=== PATIENT | female | born 1960 | race American Indian/Alaskan Native ===

== ENCOUNTER 2017-08-22 06:29 | Emergency (ER) | payer MEDICARE ==
[2017-08-22 06:42] VITALS: BP 118/47
[2017-08-22] MEDS ORDERED: BSS 1 DROPS, TETRACAINE 0.5% 1 DROPS, FUL-GLO 1 MG TP ONE (09:05)
[2017-08-22] MEDS ORDERED: TETRACAINE 0.5% ONE (09:09)
[2017-08-22] MEDS ORDERED: FUL-GLO OP ONE (09:09)
[2017-08-22] MEDS ORDERED: BSS ONE (09:09)
--- NOTE | 2017-08-22 09:11 | Emergency Department Report ---
ED Eye Problem HPI - General Chief complaint: Eye Problems Stated complaint: EYE PAIN Time Seen by Provider: 08/22/17 08:46 Source: patient Mode of arrival: Ambulatory Limitations: No Limitations - History of Present Illness Initial comments: Patient is a 57-year-old female who presents to ED complaining of lefteye pain and redness 2 days. Patient states she was outside running errands yesterday when she felt like something got in her eye or under contacts. Patient states she rubbed her left eye a few times try to get it out. The patient states that when she got home she took the contacts off and noticed that her eyes are red. She also admits left eye pain and sensitivity to light. Patient states right eye vision loss in 2000 from a retinal detachment sustained from an injury. She denies vision loss of the left eye. MD chief complaint: eye pain, eye redness - Related Data Previous Rx's Medication Instructions Recorded Last Taken Type Ketorolac Tromethamin 0.4%(Nf) 1 drop OP BID #5 ml 08/22/17 Unknown Rx [Acular Ls 0.4% Ophth Brianne] Ofloxacin [Ocuflox 0.3%] 1 - 2 drop OP Q6HR #5 ml 08/22/17 Unknown Rx Allergies Allergy/AdvReac Type Severity Reaction Status Date / Time Penicillins Allergy Rash Verified 08/22/17 07:21 ED Review of Systems ROS: Stated complaint: EYE PAIN Other details as noted in HPI Constitutional: denies: chills, fever Eyes: eye pain. denies: eye discharge, vision change ENT: denies: ear pain, throat pain Respiratory: denies: cough, shortness of breath, wheezing Cardiovascular: denies: chest pain, palpitations Endocrine: no symptoms reported Gastrointestinal: denies: abdominal pain, nausea, diarrhea Genitourinary: denies: urgency, dysuria, discharge Musculoskeletal: denies: back pain, joint swelling, arthralgia Skin: denies: rash, lesions Neurological: denies: headache, weakness, paresthesias Psychiatric: denies: anxiety, depression Hematological/Lymphatic: denies: easy bleeding, easy bruising ED Past Medical Hx - Past Medical History Previous Medical History?: No - Surgical History Past Surgical History?: Yes Additional Surgical History: Partial Hysterectomy 1998. - Social History Smoking Status: Never Smoker Substance Use Type: None - Medications Home Medications: Home Medications Medication Instructions Recorded Confirmed Last Taken Type Ketorolac Tromethamin 0.4%(Nf) 1 drop OP BID #5 ml 08/22/17 Unknown Rx [Acular Ls 0.4% Ophth Brianne] Ofloxacin [Ocuflox 0.3%] 1 - 2 drop OP Q6HR #5 ml 08/22/17 Unknown Rx ED Physical Exam - General Limitations: No Limitations General appearance: alert, in no apparent distress - Head Head exam: Present: atraumatic, normocephalic - Eye Eye exam: Present: normal appearance, PERRL, EOMI, conjunctival injection, periorbital tenderness Pupils: Present: normal accommodation - ENT ENT exam: Present: mucous membranes moist - Neck Neck exam: Present: normal inspection - Respiratory Respiratory exam: Present: normal lung sounds bilaterally. Absent: respiratory distress, wheezes, rales - Cardiovascular Cardiovascular Exam: Present: regular rate, normal rhythm. Absent: systolic murmur, diastolic murmur, rubs, gallop - GI/Abdominal GI/Abdominal exam: Present: soft, normal bowel sounds - Extremities Exam Extremities exam: Present: normal inspection - Back Exam Back exam: Present: normal inspection - Neurological Exam Neurological exam: Present: alert, oriented X3. Absent: CN II-XII intact - Psychiatric Psychiatric exam: Present: normal affect, normal mood - Skin Skin exam: Present: warm, dry, intact, normal color. Absent: rash ED Course Vital Signs 08/22/17 08/22/17 08/22/17 06:33 06:36 07:21 Temperature 98.0 F 98.0 F 98 F Pulse Rate 51 L 51 L Respiratory 10 L 10 L Rate Blood Pressure 118/47 118/47 O2 Sat by Pulse 97 97 Oximetry ED Medical Decision Making - Medical Decision Making 57 -year-old female presents with left eye conjunctivitis ED course: I examined shows no corneal abrasion, no fluorescein uptake Vision is intact left eye, EOMI. Patient is in no acute distress I discussed the patient will follow up with primary care physician. I discussed the patient a use her medication as described if any worsening symptoms to return to ED immediately. Critical care attestation.: If time is entered above; I have spent that time in minutes in the direct care of this critically ill patient, excluding procedure time. ED Disposition Clinical Impression: Conjunctivitis Qualifiers: Conjunctivitis type: acute Acute conjunctivitis type: unspecified Laterality: left Qualified Code(s): H10.32 - Unspecified acute conjunctivitis, left eye Disposition: - TO HOME OR SELFCARE Is pt being admited?: No Does the pt Need Aspirin: No Condition: Stable Instructions: Conjunctivitis (ED) Additional Instructions: Make sure to follow up with the primary care physician as discussed. Take all your medications as you've been prescribed. If you have any worsening symptoms or develop new symptoms please return to ED immediately. Prescriptions: Ketorolac Tromethamin 0.4%(Nf) [Acular Ls 0.4% Ophth Brianne] 1 drop OP BID #5 ml Ofloxacin [Ocuflox 0.3%] 1 - 2 drop OP Q6HR #5 ml Referrals: DIONICIO LANCASTER [Other] - 3-5 Days Forms: Work/School Release Form(ED) Time of Disposition: 10:12
== END 2017-08-22 10:33 | disposition home or self-care (01) ==
LOC: ED 06:29
DX: H10.32 Unspecified acute conjunctivitis, left eye (principal); Z88.0 Allergy status to penicillin
CPT/HCPCS: 99283

== ENCOUNTER 2019-08-29 08:15 | Emergency (ER) | payer MEDICARE ==
[2019-08-29 09:02] LABS: Basophils % (Auto) 0.3 % (0.0-1.8); Eosinophils # (Auto) 0.1 K/mm3 (0.0-0.4); Eosinophils % (Auto) 0.7 % (0.0-4.3); Hematocrit 39.3 % (30.3-42.9); Hemoglobin 13.7 gm/dl (10.1-14.3); Lymphocytes # (Auto) 1.7 K/mm3 (1.2-5.4); Mean Corpuscular HGB Conc 35 % (30-34); Mean Corpuscular Volume 94 fl (79-97); Monocytes # (Auto) 1.1 K/mm3 (0.0-0.8); Monocytes % (Auto) 9.9 % (0.0-7.3); Platelet Count 151 K/mm3 (140-440); Red Blood Count 4.19 M/mm3 (3.65-5.03); Red Cell Distribution Width 12.5 % (13.2-15.2)
[2019-08-29 09:12] LABS: BUN/Creatinine Ratio 22; Blood Urea Nitrogen 20 mg/dL (7-17); Calcium 11.2 mg/dL (8.4-10.2); Hemolysis Index 1
[2019-08-29 09:17] LABS: Bacteria,Urine 4+ /HPF (Negative); Bilirubin,Urine NEG (Negative); Blood,Urine MOD (Negative); Color,Urine Yellow (Yellow); Mucus,Urine 1+ /HPF; Urobilinogen,Urine < 2.0 mg/dL (<2.0)
[2019-08-29 09:18] LABS: WBC,Urine > 182.0 /HPF (0.0-6.0)
[2019-08-29 09:23] LABS: Amphetamine Screen,Urine PRESUMPTIVE NEGATIVE; Benzodiazepines Screen,Urine PRESUMPTIVE NEGATIVE; Cannabinoid Screen,Urine PRESUMPTIVE NEGATIVE; Cocaine Screen,Urine PRESUMPTIVE NEGATIVE; Methadone Screen,Urine PRESUMPTIVE NEGATIVE; Opiate Screen,Urine PRESUMPTIVE NEGATIVE
--- NOTE | 2019-08-29 09:28 | Emergency Department Report ---
ED Psych HPI - General Chief Complaint: Psych Stated Complaint: SUICIDAL Time Seen by Provider: 08/29/19 08:51 Source: EMS Mode of arrival: Ambulatory - History of Present Illness Initial Comments: 59-year-old female with a known past medical history of depression which she has been treated with for several years. She was taking Paxil 2014 which she has self discontinued due to her feeling that she was stable. Since that time she's been having progressively progressively worsening often swings with depression S associate with some suicidal ideation. She reports having attempted suicide 9-10 times with utilization of sleeping pills but today had a thoughts of wanting to cut her wrist that her to her visit in the emergency department today. The system from some recent financial expenses changes coupled with her being off of her medications. She reports no chest pain, palpitations, fever, chills, sweats, nausea, vomiting, abdominal, pain, weight gain or weight loss ultimately swelling MD Complaint: suicidal ideation -: Gradual Associated Psychiatric Symptoms: suicidal ideation History of same: Yes Quality: constant Improves With: medication Context: not taking psychiatric Associated Symptoms: denies other symptoms Treatments Prior to Arrival: none If Self Harm: admits thoughts of - Related Data Previous Rx's Medication Instructions Recorded Last Taken Type Ketorolac Tromethamin 0.4%(Nf) 1 drop OP BID #5 ml 08/22/17 Unknown Rx [Acular Ls 0.4% Ophth Brianne] Ofloxacin [Ocuflox 0.3%] 1 - 2 drop OP Q6HR #5 ml 08/22/17 Unknown Rx Allergies Allergy/AdvReac Type Severity Reaction Status Date / Time Penicillins Allergy Rash Verified 08/22/17 07:21 ED Review of Systems ROS: Stated complaint: SUICIDAL Other details as noted in HPI Comment: All other systems reviewed and negative ED Past Medical Hx - Surgical History Additional Surgical History: Partial Hysterectomy 1998. - Social History Smoking Status: Current Every Day Smoker Substance Use Type: None - Medications Home Medications: Home Medications Medication Instructions Recorded Confirmed Last Taken Type Ketorolac Tromethamin 0.4%(Nf) 1 drop OP BID #5 ml 08/22/17 Unknown Rx [Acular Ls 0.4% Ophth Brianne] Ofloxacin [Ocuflox 0.3%] 1 - 2 drop OP Q6HR #5 ml 08/22/17 Unknown Rx ED Physical Exam - General Limitations: No Limitations General appearance: alert, in no apparent distress - Head Head exam: Present: atraumatic, normocephalic - Eye Eye exam: Present: normal appearance, PERRL, EOMI Pupils: Present: normal accommodation - ENT ENT exam: Present: normal exam, normal orophraynx, mucous membranes moist - Neck Neck exam: Present: normal inspection, full ROM. Absent: tenderness, meningismus - Respiratory Respiratory exam: Present: normal lung sounds bilaterally. Absent: respiratory distress, wheezes, rales, chest wall tenderness, accessory muscle use, decreased breath sounds - Cardiovascular Cardiovascular Exam: Present: regular rate, normal rhythm. Absent: systolic murmur, diastolic murmur, rubs, gallop - GI/Abdominal GI/Abdominal exam: Present: soft, normal bowel sounds. Absent: distended, tenderness, hyperactive bowel sounds, hypoactive bowel sounds, organomegaly - Extremities Exam Extremities exam: Present: normal inspection, full ROM, normal capillary refill. Absent: pedal edema, joint swelling - Back Exam Back exam: Present: normal inspection. Absent: CVA tenderness (R), CVA tenderness (L) - Neurological Exam Neurological exam: Present: alert, oriented X3, CN II-XII intact - Psychiatric Psychiatric exam: Present: depressed, suicidal ideation - Skin Skin exam: Present: warm, dry, intact, normal color. Absent: rash ED Course Vital Signs 08/29/19 08/29/19 08:30 15:42 Temperature 98.8 F 100 F H Pulse Rate 71 68 Respiratory 18 Rate Blood Pressure 117/78 100/40 [Left] O2 Sat by Pulse 96 96 Oximetry ED Medical Decision Making - Lab Data Result diagrams: 08/29/19 08:42 08/29/19 08:42 - Medical Decision Making This patient presents with symptoms consistent with an underlying psychiatric disorder, most likely suicidal ideation. Differential diagnosis includes major depression , schizophrenia. Presentation not consistent with acute organic causes to include delirium, dementia or drug induced disorders (acute ingestions or withdrawal; no evidence of toxidrome). Given the H&P, I suspect this patient is suicidal/homicidal/gravely disabled and will require psychiatric care. Will consult psychiatry to evaluate the patient for potential hold for 1013 Will also obtain labs for medical clearance. Plan: labs, EKG, ASA/APAP levels, ETOH level, UDS, , Psych consult, medical detainment, reassess Thoughts are linear and organized, and patient has no AH, VH, or HI. Prior suicide attempt by Prior Psychiatric Hospitalizations: Clinically patient displays no overt toxidrome; they are well appearing, with low suspicion for toxic ingestion given history and exam. Thoughts unlikely 2/2 anemia, hypothyroidism, infection, or ICH. Consult: Psychiatry to evaluate patient for potential hold for danger to self. Disposition: Plan admit to psychiatry for further management of symptoms. Disposition After evaluation in the emergency department for a psychiatric disease, no findings exacerbating or causing the psychiatric complaint. This patient demonstrates no contributing medical instability or "condition facilitating this psychiatric presentation. See the accompanying mental health supervisor commissary production's note for more detail Critical care attestation.: If time is entered above; I have spent that time in minutes in the direct care of this critically ill patient, excluding procedure time. ED Disposition Clinical Impression: Suicidal ideations Disposition: [id number] PSY HOSP/PSY UNIT Is pt being admited?: No Does the pt Need Aspirin: No Condition: Stable Referrals: TONNY MALLORY [Other] - 3-5 Days
[2019-08-29 15:43] VITALS: BP 100/40
== END 2019-08-29 15:50 ==
LOC: ED 08:15 → EEVIPCON 08:15 → ED 15:50
DX: R45.851 Suicidal ideations (principal); F17.200 Nicotine dependence, unspecified, uncomplicated; Z90.710 Acquired absence of both cervix and uterus; Z79.899 Other long term (current) drug therapy; Z88.0 Allergy status to penicillin
CPT/HCPCS: 36415; 80048; 80307; 80320; 81001; 85025; G0480